=== PATIENT | male | born 1970 | race Caucasian/White ===

== ENCOUNTER 2024-08-20 21:44 | Emergency (ER) | payer OTHER ==
[~2024-08-20] VITALS: Ht 180.3 cm; Wt 97.7 kg
[2024-08-20] MEDS ORDERED: LISINOPRIL5 MG PO (21:51)
[2024-08-20 21:55] LABS: BASOPHILS 0.2 % (0.2-1.2); EOSINOPHILS 0 % (0.8-7.0); HEMATOCRIT 47.5 % (40.1-51.0); HEMOGLOBIN 16.4 g/dL (13.7-17.5); MCH 32.9 PG (25.7-32.2); MCHC 34.5 g/dL (32.3-36.5); MCV 95.4 fL (79.0-92.2); MONOCYTES 5.2 % (5.3-12.2); NEUTROPHILS 85.3 % (34.0-67.9); PLATELET COUNT 280 K/uL (163-337); RBC 4.98 M/uL (4.63-6.08)
[2024-08-20] MEDS ORDERED: FOLIC ACID 1 MG/0.2 ML ML IV ONE (22:00)
[2024-08-20] MEDS ORDERED: THIAMINE HCL 200 MG/2 ML VIAL IV ONE (22:00)
[2024-08-20] MEDS ORDERED: LACTATED RINGER'S 1,000 ML IV ONE (22:00)
[2024-08-20 22:10] LABS: ALBUMIN 4.2 g/dL (3.4-5.0); ALBUMIN/GLOBULIN RATIO 1.2 (1.1-2.4); ANION GAP 24.1 (7-21); BILIRUBIN, TOTAL 0.6 mg/dL (0.2-1.0); BUN/CREATININE RATIO 17.64 (6.0-28.6); CALCIUM 8.8 mg/dL (8.5-10.1); CREATININE, SERUM 1.7 mg/dL (0.70-1.30); MAGNESIUM 2.1 mg/dL (1.8-2.4); POTASSIUM 4.1 mmol/L (3.5-5.1); PROTEIN, TOTAL 7.7 g/dL (6.4-8.2)
[2024-08-20] MEDS ORDERED: KETOROLAC TROMETHAMINE 15 MG/ML VIAL IV ONE (22:15)
[2024-08-20] MEDS ORDERED: CYCLOBENZAPRINE10 MG PO (22:19)
[2024-08-21 05:10] VITALS: BP 152/85
[2024-08-21] MEDS ORDERED: lisinopriL 20 MG TAB PO ONE (05:15)
== END 2024-08-21 05:19 | disposition home or self-care (01) ==
LOC: ED 21:44
PROVIDERS: Family Medicine
DX: E86.0 Dehydration (principal); F10.129 Alcohol abuse with intoxication, unspecified; I10 Essential (primary) hypertension; Z79.899 Other long term (current) drug therapy
CPT/HCPCS: 36415; 80053; 83735; 85025; 96361; 96374; 96375; 99284-25; J1885; J3411; J7121